=== PATIENT | female | born 1970 | race Two or more races ===

== ENCOUNTER 2024-10-22 10:31 | Emergency (ER) | payer OTHER ==
[2024-10-22 10:38] VITALS: BP 125/77; PULSE 80; RESP 18; TEMP 97.9; BMI 40.3
[2024-10-22] MEDS ORDERED: LIDOCAINE 5% TOPICAL PATCH ONE (11:15)
[2024-10-22] MEDS ORDERED: KETOROLAC TROMETHAMINE 15 MG/ML VIAL ONE (11:16)
[2024-10-22] MEDS: KETOROLAC TROMETHAMINE 15 MG/ML VIAL IM ONE (11:22)
[2024-10-22] MEDS: LIDOCAINE 5% TOPICAL PATCH TP ONE (11:22)
[2024-10-22] MEDS ORDERED: LIDOCAINE PATCH REMOVAL MC SCH (22:00)
== END 2024-10-22 12:36 | disposition home or self-care (01) ==
LOC: JERFT 10:31 → JER 10:31
PROC: 3E0133Z Introduction of Anti-inflammatory into Subcutaneous Tissue, Percutaneous Approach (ICD-10-PCS; principal; 2024-10-22)
DX: M25.552 Pain in left hip (principal); G89.29 Other chronic pain
CPT/HCPCS: 99284-25